=== PATIENT | female | born 1995 | race Caucasian/White ===

== ENCOUNTER 2020-11-27 09:42 | Emergency (ER) | payer SELFPAY ==
[~2020-11-27] VITALS: Ht 157.5 cm; Wt 90.3 kg
[2020-11-27 09:52] VITALS: BP 136/85
--- NOTE | 2020-11-27 10:02 | NUR ---
Patient ambulated to bed 02 with steady/even gait and placed into a gown. RN at bedside evaluating patient.
--- NOTE | 2020-11-27 10:15 | NUR ---
Pt ambulated to bed 05.
--- NOTE | 2020-11-27 10:20 | NUR ---
I&D SET UP AT BED SIDE
[2020-11-27] MEDS ORDERED: LIDOCAINE/EPI 2% 1:100000 20 ML VIAL INJ ONE (10:48)
[2020-11-27] MEDS ORDERED: NAPR-54 PO (11:19)
[2020-11-27] MEDS ORDERED: SULF-59 PO (11:19)
--- NOTE | 2020-11-27 11:55 | NUR ---
PT'S WOUND DRESSED WITH NON-ADHERENT GUAZE PAD
--- NOTE | 2020-11-27 12:00 | NUR ---
Patient discharged with v/s stable. Written and verbal after care instructions given and explained. Patient alert, oriented and verbalized understanding of instructions. Ambulatory with steady gait. All questions addressed prior to discharge. ID band removed. Patient advised to follow up with PMD or ED in 2 days for wound check. Rx of Bactrim DS and Naproxen given. Patient educated on indication of medication including possible reaction and side effects. Opportunity to ask questions provided and answered.
== END 2020-11-27 12:00 | disposition home or self-care (01) ==
LOC: MED 09:42
DX: L05.01 Pilonidal cyst with abscess (principal)
CPT/HCPCS: 10060; 99284; J2001

== ENCOUNTER 2020-11-29 10:43 | Emergency (ER) | payer SELFPAY ==
[~2020-11-29] VITALS: Ht 157.5 cm; Wt 89.8 kg
[~2020-11-29 10:43] MED LIST: NAPR-54 PO; SULF-59 PO
[2020-11-29 10:52] VITALS: BP 138/89
--- NOTE | 2020-11-29 11:30 | NUR ---
Patient discharged with v/s stable. Written and verbal after care instructions given and explained. Patient verbalized understanding. Ambulatory with steady gait. All questions addressed prior to discharge. Advised to follow up with PMD.
== END 2020-11-29 11:30 | disposition home or self-care (01) ==
LOC: MED 10:43
DX: L05.01 Pilonidal cyst with abscess (principal); Z48.00 Encounter for change or removal of nonsurgical wound dressing
CPT/HCPCS: 99281

== ENCOUNTER 2021-06-19 12:04 | Emergency (ER) | payer MEDICAID ==
[~2021-06-19] VITALS: Ht 157.5 cm; Wt 89.8 kg
[2021-06-19 12:09] VITALS: BP 161/109
--- NOTE | 2021-06-19 12:12 | NUR ---
PATIENT AMBULATED TO BED 9
--- NOTE | 2021-06-19 12:25 | NUR ---
DR. DOS SANTOS AND ANTONIO AT BEDSIDE
[2021-06-19] MEDS ORDERED: LIDOCAINE/EPI 1% 1:100000 20 ML VIAL INJ ONE (12:40)
[2021-06-19] MEDS ORDERED: IBUPROFEN 600 MG TAB PO ONE (12:40)
--- NOTE | 2021-06-19 12:42 | NUR ---
26 y/o female, c/o abscess on right buttocks for 4 days, pain radiates to left side. pt states she has had same abscess in the past and had it drained. upon assessment, area appears reddeneded at this time, with some drainage. aa&ox4, ambulates with steady gait, pain increases while sitting on area. ermd made aware of status. pmh: previous abscess nka med: tylenol prior to arrival (no relief)
--- NOTE | 2021-06-19 13:01 | NUR ---
DR. ALVAREZ AT BEDSIDE: PROCEDURE INCISION AND DRAINAGE
[2021-06-19] MEDS ORDERED: NAPR-54 PO (13:13)
[2021-06-19] MEDS ORDERED: SULF-59 PO (13:13)
--- NOTE | 2021-06-19 13:18 | NUR ---
PT'S WOUND CLEANED W/ NORMAL SALINE AND DRESSED WITH BIG BAND-AID.
--- NOTE | 2021-06-19 13:22 | NUR ---
Patient discharged with v/s stable. Written and verbal after care instructions given and explained. Patient alert, oriented and verbalized understanding of instructions. Ambulatory with steady gait. All questions addressed prior to discharge. ID band removed. Patient advised to follow up with PMD. Rx of NAPROXEN, BACTRIM given. Patient educated on indication of medication including possible reaction and side effects. Opportunity to ask questions provided and answered. The patient's care was reviewed and supervised by Ale Arriaga RN.
--- NOTE | 2021-06-19 13:22 | NUR ---
The patient's care was reviewed and supervised by Ale Arriaga RN.
== END 2021-06-19 13:22 | disposition home or self-care (01) ==
LOC: MED 12:04
DX: L05.01 Pilonidal cyst with abscess (principal); Z79.899 Other long term (current) drug therapy
CPT/HCPCS: 10080; 99284; J2001

== ENCOUNTER 2023-04-05 15:42 | Emergency (ER) | payer MEDICAID, OTHER ==
[~2023-04-05] VITALS: Ht 157.5 cm; Wt 86.2 kg
[2023-04-05 16:13] VITALS: BP 131/81; PULSE 96; RESP 16; TEMP 98.2; O2SAT 97
[2023-04-05 16:40] LABS: BASOPHILS # (AUTO) 0.1 K/uL (0.00-0.22); BASOPHILS % (AUTO) 0.5 % (0.0-2.0); EOSINOPHILS # (AUTO) 0.1 K/uL (0-0.4); EOSINOPHILS % (AUTO) 0.6 % (0.0-4.0); HEMATOCRIT 37.8 % (36-48); HEMOGLOBIN 12.9 g/dL (12.0-16.0); LYMPHOCYTES # (AUTO) 1.7 K/uL (2.5-16.5); LYMPHOCYTES % (AUTO) 13.3 % (20.5-51.1); MEAN CORPUSCULAR HEMOGLOBIN 28 pg (27-31); MEAN CORPUSCULAR HGB CONC 34 g/dL (33-37); MEAN CORPUSCULAR VOLUME 83.3 fL (80-94); MONOCYTES # (AUTO) 0.8 K/uL (0.8-1.0); MONOCYTES % (AUTO) 6.5 % (1.7-9.3); NEUTROPHILS # (AUTO) 10.1 K/uL (1.8-7.7); NEUTROPHILS % (AUTO) 79.1 % (42.2-75.2); PLATELET COUNT (AUTO) 257 K/uL (140-450); RED BLOOD CELL COUNT(AUTO) 4.54 MIL/uL (4.20-5.40); RED CELL DISTRIBUTION WIDTH 13.8 % (11.6-13.7); WHITE BLOOD COUNT (AUTO) 12.7 K/uL (4.8-10.8)
[2023-04-05 16:41] LABS: BILIRUBIN,URINE NEGATIVE (NEGATIVE); BLOOD, URINE NEGATIVE (NEGATIVE); LEUKOCYTE ESTERASE ,URINE 2+ (NEGATIVE); NITRITE, URINE NEGATIVE (NEGATIVE); PH,URINE 6.5 (5.0-9.0); PROTEIN,URINE NEGATIVE (NEGATIVE); UGLUCOSE NEGATIVE (NEGATIVE); UROBILINOGEN,URINE 0.2 EU/dL (0.2 - 1)
[2023-04-05 16:42] LABS: APPEARANCE,URINE CLOUDY (CLEAR); COLOR,URINE AMBER (YELLOW)
[2023-04-05 16:49] LABS: CALCIUM 8.8 mg/dL (8.5-10.1); CARBON DIOXIDE 24.4 mmol/L (21-32); CREATININE 0.5 mg/dL (0.6-1.3); POTASSIUM 3.4 mmol/L (3.5-5.1)
[2023-04-05 16:59] LABS: BACTERIA,URINE 10-30 (MOD) /HPF (None Seen)
[2023-04-05 17:02] LABS: SQUAMOUS EPITHELIAL CELL,UR 4-10 (MOD) /LPF (0-3 (FEW))
[2023-04-05] MEDS ORDERED: CEPH-588 PO (17:30)
[2023-04-05 17:32] VITALS: BP 130/79; PULSE 88; RESP 17; TEMP 98.2; O2SAT 98
== END 2023-04-05 17:38 | disposition home or self-care (01) ==
LOC: MED 15:42
DX: O23.42 Unspecified infection of urinary tract in pregnancy, second trimester (principal); Z3A.19 19 weeks gestation of pregnancy; Z98.890 Other specified postprocedural states; Z79.1 Long term (current) use of non-steroidal anti-inflammatories (NSAID); Z79.2 Long term (current) use of antibiotics
CPT/HCPCS: 36415; 80048; 81001; 81025; 84702; 85025; 86886; 86900; 86901; 87086; 99284